=== PATIENT | female | born 1995 | race Caucasian/White ===

== ENCOUNTER 2018-04-03 22:59 | Emergency (ER) | payer BC, MEDICAID ==
[~2018-04-03] VITALS: Ht 157.5 cm; Wt 81.6 kg
[2018-04-03 23:05] VITALS: BP_SYST 114
--- NOTE | 2018-04-03 23:10 | NUR ---
Patient triaged and placed in waiting room. VSS and patient appears in no acute distress at this time. Accompanied by friend, awaiting available bed, and MD notified of need for MSE.
--- NOTE | 2018-04-03 23:25 | NUR ---
Pt ambulatory to bed 3 for evalaution
--- NOTE | 2018-04-03 23:50 | NUR ---
Pt came into the ED with mother for sudden onset of abd pain which started since 2029 today. Pt has nausea and has vomited twice prior coming into the ED. Pain is 8/10. Pt reported to have bm in the ED. Pt states that she smokes cigarettes and marijuana. HX of IBS. Denies eating anything out of the ordinary. No other complaints/injuries noted. Will cont. to monitor.
--- NOTE | 2018-04-04 00:16 | NUR ---
ER at bedside examining patient.
[2018-04-04] MEDS: ONDANSETRON HCL 4 MG/2 ML VIAL IVP ONE (00:36)
[2018-04-04] MEDS: DIPHENHYDRAMINE INJ 50 MG/ML VIAL IVP ONE (00:36)
[2018-04-04] MEDS: NACL 0.9% 1,000 ML IV ONE (00:37)
[2018-04-04] MEDS: MORPHINE 4 MG/ML INJ. SYRINGE IVP ONE ×2 (00:37→01:12)
[2018-04-04 00:44] LABS: CLARITY/URINE SLIGHTLY HAZY (CLEAR); COLOR,URINE YELLOW (YELLOW)
[2018-04-04 00:45] LABS: BILIRUBIN,URINE NEGATIVE (NEGATIVE); BLOOD, URINE TRACE (NEGATIVE); GLUCOSE,URINE NEGATIVE (NEGATIVE); KETONES,URINE NEGATIVE (NEGATIVE); LEUKOCYTE ESTERASE ,URINE NEGATIVE (NEGATIVE); NITRITE, URINE NEGATIVE (NEGATIVE); PH,URINE 5.5 (5.0-8.0); PROTEIN URINE NEGATIVE (NEGATIVE); UROBILINOGEN,URINE 0.2 (0.2-1.0)
--- NOTE | 2018-04-04 00:48 | NUR ---
pt MEDICATED WITH FLUIDS, MORPHINE IVP, BENADRYL IVP, AND ZOFRAN IVP PER MD ORDER. TOLERATED WELL. WILL CONT. TO MONITOR.
[2018-04-04 00:51] LABS: BASOPHILS % (AUTO) 0.2 % (0.0-2.0); EOSINOPHILS # (AUTO) 0.1 K/uL (0.0-0.4); EOSINOPHILS % (AUTO) 0.6 % (0.0-4.0); HEMOGLOBIN 16.1 g/dL (12.0-16.0); LYMPHOCYTES # (AUTO) 1.1 K/uL (1.0-5.5); LYMPHOCYTES % (AUTO) 6.4 % (20.5-51.5); MEAN CORPUSCULAR HEMOGLOBIN 32 pg (27-31); MEAN CORPUSCULAR HGB CONC 34 % (32-36); MEAN CORPUSCULAR VOLUME 94 fL (79.0-98.0); MONOCYTES # (AUTO) 0.9 K/uL (0.0-1.0); MONOCYTES % (AUTO) 5.2 % (1.7-9.3); NEUTROPHILS # (AUTO) 15.5 K/uL (1.8-7.7); NEUTROPHILS % (AUTO) 87.6 % (40.0-70.0); PLATELET COUNT (AUTO) 248 K/uL (130-430); RED BLOOD CELL COUNT(AUTO) 4.99 MIL/uL (4.2-6.2); WHITE BLOOD COUNT (AUTO) 17.6 K/uL (4.5-11.0)
[2018-04-04 00:54] LABS: CALCIUM 9.1 mg/dL (8.4-11.0); CREATININE 0.72 mg/dL (0.55-1.30); POTASSIUM 3.8 mmol/L (3.5-5.1)
[2018-04-04 01:01] LABS: TOTAL BILIRUBIN 0.6 mg/dL (0.0-1.0)
[2018-04-04 01:02] LABS: ALBUMIN 4.2 g/dL (3.4-4.8)
--- NOTE | 2018-04-04 01:04 | NUR ---
Pts Mom says pt is uncomfortable and is still in pain. ER MD made aware .
[2018-04-04 01:12] LABS: BACTERIA,URINE FEW /HPF (None Seen); WBC,URINE 0-3 /HPF (0-3)
--- NOTE | 2018-04-04 01:21 | NUR ---
pT MEDICATED WITH MORPHINE IVP PER MD ORDER. TOLERATED WELL. WILL CONT. TO MONITOR.
[2018-04-04] MEDS: PANTOPRAZOLE SODIUM 40 MG/VIAL (PROTONIX) IVP ONE (01:58)
--- NOTE | 2018-04-04 02:06 | NUR ---
PT MEDICATED WITH PROTONIX ICP PER MD ORDER. TOLERATED WELL. WILL CONT. TO MONITOR.
[2018-04-04] MEDS: METOCLOPRAMIDE HCL 10 MG/2 ML VIAL IVP ONE (03:04)
--- NOTE | 2018-04-04 03:04 | NUR ---
Pt medicated with Reglan IVP per MD order. Tolerated well. Will cont. to monitor.
[2018-04-04 03:10] VITALS: BP_SYST 114
--- NOTE | 2018-04-04 03:10 | NUR ---
Patient given written and verbal discharge instructions and verbalizes understanding. ER MD Dr. Phillips discussed with patient the results and treatment provided. Patient in stable condition. ID arm band removed. IV catheter removed intact and dressing applied, no active bleeding. Rx of zofran given. Patient educated on pain management and to follow up with PMD within 2-3 days. Pain Scale 0/10, observed pt able to walk with steady gait. Pt states, "I want to go home and sleep." Opportunity for questions provided and answered. Medication side effect fact sheet provided.
== END 2018-04-04 03:10 | disposition home or self-care (01) ==
LOC: SED 22:59
DX: K58.8 Other irritable bowel syndrome (principal); F17.210 Nicotine dependence, cigarettes, uncomplicated
CPT/HCPCS: 36415; 80053; 81000; 81025; 83690; 85025; 96361; 96374; 96375; 96376; 99283; C9113; J1200; J2270; J2405; J2765

== ENCOUNTER 2018-10-20 23:55 | Emergency (ER) | payer BC, MEDICAID ==
[~2018-10-20] VITALS: Ht 157.5 cm; Wt 90.7 kg
[2018-10-21] VITALS: BP_SYST 117
--- NOTE | 2018-10-21 00:11 | NUR ---
Patient to ER bed 5 to gown for evaluation. Side rails up. Report given to Karla ROBERTS.
--- NOTE | 2018-10-21 00:55 | NUR ---
AN Phillips at bedside for medical evaluation.
[2018-10-21] MEDS ORDERED: NACL 0.9% 1,000 ML IV ONE (00:57)
[2018-10-21] MEDS ORDERED: LORazepam 2 MG/ML VIAL IVP ONE (01:00)
[2018-10-21] MEDS ORDERED: ONDANSETRON HCL 4 MG/2 ML VIAL IVP ONE (01:00)
[2018-10-21] MEDS ORDERED: PANTOPRAZOLE SODIUM 40 MG/VIAL (PROTONIX) IVP ONE (01:00)
--- NOTE | 2018-10-21 01:00 | NUR ---
Patient AOx4, ambulatory, presents to ER with complaint of body aches, decreased appetite, nausea, constipation, and numbness to fingers. Boyfriend states "this might be an anxiety attack". Father states patient has had similar episode in the past. Patient states hx of depression, IBS, and cannabis use. Patient states no suicidal ideation.
--- NOTE | 2018-10-21 01:54 | NUR ---
Patient does not wish to proceed with medical care recommended by Dr. Phillips. Patient given information related to possible complications, up to and including , which could occur as a result of leaving hospital at this time. Patient verbalizes understanding of risks involved leaving against medical advice. Patient has signed AMA form.
== END 2018-10-21 01:54 | disposition left against medical advice (07) ==
LOC: SED 23:55
DX: F41.9 Anxiety disorder, unspecified (principal); F32.9 Major depressive disorder, single episode, unspecified; F12.90 Cannabis use, unspecified, uncomplicated
CPT/HCPCS: 99281; J2060

== ENCOUNTER 2019-11-22 15:53 | Emergency (ER) | payer BC, MEDICAID ==
[~2019-11-22] VITALS: Ht 157.5 cm; Wt 99.8 kg
[2019-11-22 15:59] VITALS: BP_SYST 147
[2019-11-22] MEDS ORDERED: KETOROLAC TROMETHAMINE 30 MG VIAL IM ONE (16:15)
[2019-11-22 16:32] VITALS: BP_SYST 147
== END 2019-11-22 16:32 | disposition home or self-care (01) ==
LOC: SED 15:53
DX: H60.91 Unspecified otitis externa, right ear (principal); H66.91 Otitis media, unspecified, right ear
CPT/HCPCS: 96372; 99283; J1885